=== PATIENT | female | born 1980 | race Caucasian/White ===

== ENCOUNTER 2017-10-19 17:08 | Emergency (ER) | payer OTHER | END 2017-10-19 18:21 | disposition home or self-care (01) | LOC: ER 17:08 | DX: S93.401A Sprain of unspecified ligament of right ankle, initial encounter (principal); Z87.820 Personal history of traumatic brain injury; X58.XXXA Exposure to other specified factors, initial encounter; Y93.01 Activity, walking, marching and hiking; Y92.89 Other specified places as the place of occurrence of the external cause; Y99.8 Other external cause status | CPT/HCPCS: 29515; 73610; 99284-25 ==